=== PATIENT | female | born 1935 | race Caucasian/White ===

== ENCOUNTER → 2017-08-11 | Outpatient (CLI) | payer MEDICARE, BC ==
[2017-08-11 10:34] LABS: ALT 35 U/L (9-52); AST 24 U/L (14-36); Cholesterol 133 mg/dL (<200); HDL Cholesterol 45 mg/dL (40-60)
== END | disposition home or self-care (01) ==
LOC: LABWHC1 09:41
PROVIDERS: ATTEND Internal Medicine Cardiovascular Disease
DX: E78.2 Mixed hyperlipidemia (principal)
CPT/HCPCS: 36415; 80061; 84450; 84460

== ENCOUNTER → 2019-10-29 | Outpatient (CLI) | payer MEDICARE, BC ==
[2019-10-29 14:02] LABS: HGB 12.4 gm/dL (11.4-16.0); MCH 32.1 pg (25.0-35.0); MCHC 33.5 g/dL (31.0-37.0); MCV 95.9 fL (80.0-100.0); Mean Platelet Volume 9.1; Platelet Count 296 k/uL (150-450); RBC 3.86 m/uL (3.80-5.40); RDW 11.8 % (11.5-15.5); WBC 10.5 k/uL (3.8-10.6)
[2019-10-29 14:16] LABS: Partial Thromboplastin Time 22.4 sec (22.0-30.0); Prothrombin Time 10.2 sec (9.0-12.0)
[2019-10-29 15:46] LABS: Erythrocyte Sedimentation Rate 17 mm/hr (0-20)
[2019-10-29 20:46] LABS: African American GFR (CKD) 96.3 (60.0-200.0); Albumin 4.2 g/dL (3.80-4.90); Albumin/Globulin Ratio 2.33 (1.60-3.17); Anion Gap 8.1 mmol/L (4.00-12.00); BUN/Creat Ratio 31.67 Ratio (12.00-20.00); Calcium 9.3 mg/dL (8.7-10.3); Carbon Dioxide 27.9 mmol/L (21.6-31.8); Globulin 1.8 g/dL (1.6-3.3); Non-African American GFR(CKD) 83.1 (60.0-200.0); Potassium 4.3 mmol/L (3.5-5.5); Total Bilirubin 0.5 mg/dL (0.3-1.2)
== END | disposition home or self-care (01) ==
LOC: LABWHC1 12:03
PROVIDERS: ATTEND Psychiatry & Neurology Neurology
DX: I63.9 Cerebral infarction, unspecified (principal); E56.9 Vitamin deficiency, unspecified; R41.3 Other amnesia; R26.89 Other abnormalities of gait and mobility
CPT/HCPCS: 36415; 80053; 82306; 82607; 85027; 85610; 85652; 85730

== ENCOUNTER → 2019-11-09 | Outpatient (CLI) | payer MEDICARE, BC ==
--- NOTE | 2019-11-09 18:25 | MR ---
EXAMINATION TYPE: MR brain wo con DATE OF EXAM: 11/09/2019 COMPARISON: NONE HISTORY: Memory Loss, CVA TECHNIQUE: Multiplanar, multisequence imaging of the brain and brainstem is performed without IV cont rast. FINDINGS: Diffusion weighted images demonstrate no evidence of a recent infarct or other diffusion abnormality. There is no worrisome extra-axial fluid collection. There is diffuse ventricular and sulcal prominenc e. There are multifocal areas of T2 hyperintensity seen throughout the superficial deep and periventr icular white matter somewhat confluent in appearance of periventricular levels. Findings presumed on the basis of product of chronic small vessel ischemic change in patient of this age. Midline structures demonstrate normal morphology. The craniocervical junction appears within normal limits. Normal vascular flow voids are present. Mild mucosal thickening involving ethmoid sinuses chris aterally otherwise paranasal sinuses clear. Globes are intact bilaterally. IMPRESSION: There is [id number] diffuse cerebral atrophy and fairly advanced chronic small vess el ischemic change.
== END | disposition home or self-care (01) ==
LOC: RADMRIMAIN 17:43
PROVIDERS: ATTEND Psychiatry & Neurology Neurology
DX: G31.89 Other specified degenerative diseases of nervous system (principal); I67.82 Cerebral ischemia
CPT/HCPCS: 70551

== ENCOUNTER 2022-02-13 11:25 | Emergency (ER) | payer MEDICARE, BC ==
--- NOTE | 2022-02-13 11:52 | ED ---
General Adult HPI - General Stated complaint: Fall Time Seen by Provider: 02/13/22 11:25 Source: patient, RN notes reviewed, old records reviewed - History of Present Illness Initial comments: This is an 86-year-old female presents emergency Department [facility] No one witnessed the fall however staff state that they were in there immediately and the patient had not lost consciousness. Patient herself does not remember falling. She does complain of right shoulder pain. Patient denies headache patient denies neck pain. Patient has a numbness weakness. Patient denies chest pain back pain or abdominal pain. Patient denies any other problems at this time. Patient states at no time did she ever remember having chest pain difficulty breathing but staff at the [facility] stated that she often is not aware of recent history. - Related Data Allergies Allergy/AdvReac Type Severity Reaction Status Date / Time No Known Allergies Allergy Verified 02/13/22 12:00 Review of Systems ROS Statement: Those systems with pertinent positive or pertinent negative responses have been documented in the HPI. ROS Other: All systems not noted in ROS Statement are negative. General Exam - General Exam Comments Initial Comments: GENERAL: Patient is well-developed and well-nourished. Patient is nontoxic and well-hydrated and is in mild distress. Patient is in small forehead hematoma ENT: Neck is soft and supple. No significant lymphadenopathy is noted. Oropharynx is clear. Moist mucous membranes. Neck has full range of motion without eliciting any pain. EYES: The sclera were anicteric and conjunctiva were pink and moist. Extraocular movements were intact and pupils were equal round and reactive to light. Eyelids were unremarkable. PULMONARY: Unlabored respirations. Good breath sounds bilaterally. No audible rales rhonchi or wheezing was noted. CARDIOVASCULAR: There is a regular rate and rhythm without any murmurs gallops or rubs. ABDOMEN: Soft and nontender with normal bowel sounds. SKIN: Skin is clear with no lesions or rashes and otherwise unremarkable. NEUROLOGIC: Patient is alert and oriented x3. Cranial nerves II through XII are grossly intact. Motor and sensory are also intact. Normal speech, volume and content. Symmetrical smile. MUSCULOSKELETAL: Left shoulder is tender in the anterior aspect. Patient is painful with any type of movement of the shoulder. There is no clavicle tenderness. No elbow tenderness wrist tenderness or hand tenderness LYMPHATICS: No significant lymphadenopathy is noted PSYCHIATRIC: Normal psychiatric evaluation. Course Vital Signs 02/13/22 11:37 Temperature 97.8 F Pulse Rate 51 L Respiratory 18 Rate Blood Pressure 135/57 O2 Sat by Pulse 97 Oximetry Medical Decision Making - Medical Decision Making EKG shows a sinus bradycardia 51 bpm MO interval is 217 QT interval is 105 Q-T intervals 461 QTC is 437. Patient's EKG shows no ST segment elevation or depression. X-ray of the shoulder shows a proximal humerus fracture. New. Chest x-ray shows no acute abnormality. CT of the brain and C-spine showed no acute abnormality. Patient was put in a sling and will follow-up with orthopedics. - Lab Data Result diagrams: 02/13/22 12:17 02/13/22 12:17 Lab Results 02/13/22 02/13/22 02/13/22 Range/Units 12:17 12:17 14:19 WBC 15.1 H (3.8-10.6) k/uL RBC 3.67 L (3.80-5.40) m/uL Hgb 11.9 (11.4-16.0) gm/dL Hct 36.8 (34.0-46.0) % MCV 100.4 H (80.0-100.0) fL MCH 32.4 (25.0-35.0) pg MCHC 32.3 (31.0-37.0) g/dL RDW 11.6 (11.5-15.5) % Plt Count 202 (150-450) k/uL MPV 9.0 Neutrophils % 84 % Lymphocytes % 10 % Monocytes % 4 % Eosinophils % 2 % Basophils % 1 % Neutrophils # 12.6 H (1.3-7.7) k/uL Lymphocytes # 1.5 (1.0-4.8) k/uL Monocytes # 0.6 (0-1.0) k/uL Eosinophils # 0.2 (0-0.7) k/uL Basophils # 0.1 (0-0.2) k/uL Sodium 137 (137-145) mmol/L Potassium 3.6 (3.5-5.1) mmol/L Chloride 102 (98-107) mmol/L Carbon Dioxide 31 H (22-30) mmol/L Anion Gap 4 mmol/L BUN 17 (7-17) mg/dL Creatinine 0.67 (0.52-1.04) mg/dL Est GFR (CKD-EPI)AfAm >90 (>60 ml/min/1.73 sqM) Est GFR (CKD-EPI)NonAf 79 (>60 ml/min/1.73 sqM) Glucose 110 H (74-99) mg/dL Calcium 9.3 (8.4-10.2) mg/dL Total Bilirubin 0.3 (0.2-1.3) mg/dL AST 31 (14-36) U/L ALT 21 (4-34) U/L Alkaline Phosphatase 49 (38-126) U/L Total Protein 6.0 L (6.3-8.2) g/dL Albumin 3.6 (3.5-5.0) g/dL Urine Color Yellow Urine Appearance Clear (Clear) Urine pH 6.5 (5.0-8.0) Ur Specific [place] 1.025 (1.001-1.035) Urine Protein Trace H (Negative) Urine Glucose (UA) Negative (Negative) Urine Ketones Negative (Negative) Urine Blood Negative (Negative) Urine Nitrite Negative (Negative) Urine Bilirubin Negative (Negative) Urine Urobilinogen <2.0 (<2.0) mg/dL Ur Leukocyte Esterase Trace H (Negative) Urine RBC 3 (0-5) /hpf Urine WBC 3 (0-5) /hpf Ur Squamous Epith Cells 3 (0-4) /hpf Hyaline Casts 4 H (0-2) /lpf Urine Mucus Moderate H (None) /hpf Disposition Clinical Impression: Proximal humerus fracture Disposition: HOME SELF-CARE Condition: Good Instructions (If sedation given, give patient instructions): Fall Prevention for Older Adults (ED), Arm Fracture in Adults (ED) Is patient prescribed a controlled substance at d/c from ED?: No Referrals: Drew Carpenter DO [Doctor of Osteopathic Medicine] - 1-2 days Time of Disposition: 14:36
[2022-02-13 12:06] VITALS: BP 135/57; PULSE 51; RESP 18; TEMP 97.8
--- NOTE | 2022-02-13 12:23 | XR ---
EXAMINATION TYPE: XR shoulder complete RT DATE OF EXAM: 02/13/2022 12:18 PM INDICATION: Patient age:Female; 86 years old; Reason for study: Trauma; COMPARISON: None TECHNIQUE: The right shoulder was examined in AP, internally rotated and axillary projections. FINDINGS: Comminuted fractures of the right proximal humerus largest fragment of the great tuberosity. No intra -articular extension. Mild soft tissue swelling. Mild degenerative changes of the right acromioclavic ular joint. IMPRESSION: Acute comminuted fracture of the right proximal humerus.
[2022-02-13 12:24] LABS: Basophils # (A) 0.1 k/uL (0-0.2); Basophils % (A) 1 %; Eosinophils # (A) 0.2 k/uL (0-0.7); Eosinophils % (A) 2 %; HCT 36.8 % (34.0-46.0); HGB 11.9 gm/dL (11.4-16.0); Lymphocytes # (A) 1.5 k/uL (1.0-4.8); Lymphocytes % (A) 10 %; MCH 32.4 pg (25.0-35.0); MCHC 32.3 g/dL (31.0-37.0); MCV 100.4 fL (80.0-100.0); Monocytes # (A) 0.6 k/uL (0-1.0); Monocytes % (A) 4 %; Neutrophils # (A) 12.6 k/uL (1.3-7.7); Neutrophils % (A) 84 %; Platelet Count 202 k/uL (150-450); RBC 3.67 m/uL (3.80-5.40); RDW 11.6 % (11.5-15.5); WBC 15.1 k/uL (3.8-10.6)
[2022-02-13 12:40] LABS: ALT 21 U/L (4-34); AST 31 U/L (14-36); African American GFR (CKD) >90 (>60 ml/min/1.73 sqM); Albumin 3.6 g/dL (3.5-5.0); Alkaline Phosphatase 49 U/L (38-126); Anion Gap 4 mmol/L; Blood Urea Nitrogen 17 mg/dL (7-17); Calcium 9.3 mg/dL (8.4-10.2); Carbon Dioxide 31 mmol/L (22-30); Chloride 102 mmol/L (98-107); Glucose 110 mg/dL (74-99); Non-African American GFR(CKD) 79 (>60 ml/min/1.73 sqM); Potassium 3.6 mmol/L (3.5-5.1); Sodium 137 mmol/L (137-145); Total Bilirubin 0.3 mg/dL (0.2-1.3)
--- NOTE | 2022-02-13 12:43 | CT ---
EXAMINATION TYPE: CT brain cspine wo con CT DLP: 1415.9 mGycm, Automated exposure control for dose reduction was used. DATE OF EXAM: 02/13/2022 12:21 PM COMPARISON: None.. CLINICAL INDICATION:Female, 86 years old with history of Trauma; Fall TECHNIQUE: Brain: Multiple axial CT images of the brain were obtained without IV contrast. Cspine: Axial CT images from the skull base to the inferior aspect of T2 we obtained without intraven ous contrast. Coronal and sagittal reformatted images were also reviewed. FINDINGS: Brain: Extra-axial spaces: No abnormal extra-axial fluid collections. Ventricular system: Dilatation in proportion to cerebral atrophy. Cerebral parenchyma: Cerebral atrophy. No acute intraparenchymal hemorrhage or mass effect. The doshi -white junction is well differentiated. Scattered hypoattenuating areas are seen within the white mat ter. Cerebellum: Unremarkable. Mass effect: No evidence of midline shift. Intracranial vasculature: Atherosclerotic calcifications of the intracranial vessels. Soft tissues: Normal. Calvarium/osseous structures: No depressed skull fracture. Paranasal sinuses and mastoid air cells: Mild scattered mucosal thickening and or secretions. Visualized orbits: Bilateral aphakia Cervical spine: Fracture: None. Osseous structures: Multilevel degenerative disc disease changes with endplate spurring and disc oste ophyte complex's. Vertebral alignment: Within normal limits. Spinal canal/Neural Foramina: No evidence of significant spinal canal narrowing. No evidence for sign ificant neural foraminal stenosis. Neck soft tissues: Prevertebral soft tissues are within normal limits. Other: The airway is patent. The lung apices are clear. Suspected low lung volumes with associated mo saic pattern of the visualized lungs. IMPRESSION: 1. No acute intracranial process. 2. Nonspecific white matter changes, likely secondary to chronic small vessel ischemic disease. 3. No evidence of cervical spine fracture. 4. Mild multilevel degenerative disc disease.
[2022-02-13 14:32] LABS: Appearance,Urine Clear (Clear); Bilirubin,Urine Negative (Negative); Blood,Urine Negative (Negative); Color,Urine Yellow; Glucose,Urine (UA) Negative (Negative); Hyaline Casts,Urine 4 /lpf (0-2); Ketones,Urine Negative (Negative); Leukocyte Esterase,Urine Trace (Negative); Mucus,Urine Moderate /hpf; Nitrite,Urine Negative (Negative); PH, Urine 6.5 (5.0-8.0); Protein,Urine Trace (Negative); RBC,Urine 3 /hpf (0-5); Specific Gravity,Urine 1.025 (1.001-1.035); Squamous Epithelial Cell,Urine 3 /hpf (0-4); Urobilinogen,Urine <2.0 mg/dL (<2.0); WBC,Urine 3 /hpf (0-5)
--- NOTE | 2022-02-13 15:07 | XR ---
EXAMINATION TYPE: XR chest 2V DATE OF EXAM: 02/13/2022 COMPARISON: 04/18/2011 HISTORY: Difficulty breathing TECHNIQUE: FINDINGS: Heart is normal. Lungs are clear. Diaphragm is normal. Bony thorax is intact. Thoracic aort a is atheromatous. IMPRESSION: Normal chest. No adverse change.
== END 2022-02-13 14:55 | disposition home or self-care (01) ==
LOC: EC 11:25
DX: S42.202A Unspecified fracture of upper end of left humerus, initial encounter for closed fracture (principal); W19.XXXA Unspecified fall, initial encounter; Y92.129 Unspecified place in nursing home as the place of occurrence of the external cause
CPT/HCPCS: 36415; 70450; 71046; 72125; 80053; 81001; 85025